=== PATIENT | female | born 1990 | race African-American/Black ===

== ENCOUNTER 2018-01-03 23:10 | Emergency (ER) | payer SELFPAY ==
[~2018-01-03] VITALS: Ht 154.9 cm; Wt 163.0 kg
[2018-01-03] MEDS ORDERED: ALBU18HF INH (23:35)
[2018-01-03] MEDS ORDERED: ALBUTEROL/IPRATROPIUM 2.5MG/0.5MG, 3 ML ONE (23:40)
[2018-01-04] MEDS ORDERED: ALBUTEROL/IPRATROPIUM 2.5MG/0.5MG, 3 ML NPPB ONE
[2018-01-04 00:24] VITALS: BP 123/67
== END 2018-01-04 01:59 | disposition home or self-care (01) ==
LOC: ED 01-04 00:38
DX: J45.31 Mild persistent asthma with (acute) exacerbation (principal); J45.21 Mild intermittent asthma with (acute) exacerbation; F17.210 Nicotine dependence, cigarettes, uncomplicated
CPT/HCPCS: 71046; 93005; 94640; 99284; J7512; J7620